=== PATIENT | male | born 1965 | race Caucasian/White ===

== ENCOUNTER → 2020-12-29 | Outpatient (CLI) | payer OTHER ==
[~2020-12-29] MED LIST: SINCALIDE 1.81 MCG in IV NORMAL SALINE 50ML 30 ML IV ONE
--- NOTE | 2020-12-29 13:25 | RAD ---
EXAM: Abdomen sonogram. HISTORY: Nausea and vomiting. TECHNIQUE: Sonographic imaging of the abdomen was performed. COMPARISON: None. FINDINGS: The liver is normal in size. No focal hepatic lesion is seen. The gallbladder is unremarkab le. The common bile duct is normal in caliber. The kidneys are normal in size. There is no hydronephr osis. There is a small left renal cyst with internal echoes measuring 2.2 cm. The spleen is normal in size. The pancreas is unremarkable. The aorta and inferior vena cava are not well seen due to bowel gas. There is a right pleural effusion. IMPRESSION: 1. Small left renal cyst containing internal echoes, possibly due to debris. Sonographic follow-up ca n be performed in 6 months to confirm benignity. 2. Right pleural effusion. 3. No acute abdominal finding. Electronically signed by: Lizbeth Quiñones MD (12/29/2020 1:23 PM) [id number]
--- NOTE | 2020-12-29 13:27 | RAD ---
Exam performed: Nuclear medicine hepatobiliary scan. History: Nausea, vomiting COMPARISON: None available FINDINGS: Following intravenous administration of5.5 mCi of Choletec tagged with Tc, sequential gamma camera im ages of the right upper quadrant of the abdomen were obtained. There is prompt accumulation of radion uclide in the liver which appears to be unremarkable Prompt accumulation in the central intrahepatic biliary radicals, gallbladder, common bile duct and small bowel is noted. Patient was also infused with 1.8mcg of CCK and gallbladder ejection fraction was calculated which me [id number] % Impression: 1. Decreased gallbladder ejection fraction likely biliary dyskinesia or chronic cholecystitis. Electronically signed by: Johnson Haas MD (12/29/2020 1:25 PM) [id number]
== END ==
LOC: US 11:09
PROVIDERS: ATTEND Internal Medicine Gastroenterology
DX: N28.1 Cyst of kidney, acquired (principal); J90 Pleural effusion, not elsewhere classified
CPT/HCPCS: 76700; 78227; A9537; J2805